=== PATIENT | female | born 1965 | race African-American/Black ===

== ENCOUNTER 2021-11-16 13:52 | Outpatient (CLI) | payer BC | END 2021-11-16 13:53 | disposition home or self-care (01) | LOC: CSHMAMMO 13:52 | PROVIDERS: ATTEND Family Medicine | DX: Z12.31 Encounter for screening mammogram for malignant neoplasm of breast (principal) | CPT/HCPCS: 77063; 77067 ==

== ENCOUNTER 2023-02-16 13:22 | Outpatient (CLI) | payer BC | END 2023-02-16 13:23 | disposition home or self-care (01) | LOC: CSHMAMMO 13:22 | PROVIDERS: ATTEND Family Medicine | DX: Z12.31 Encounter for screening mammogram for malignant neoplasm of breast (principal) | CPT/HCPCS: 77063; 77067 ==